=== PATIENT | male | born 1970 | race Caucasian/White ===

== ENCOUNTER 2018-02-28 09:47 | Outpatient (CLI) | payer BC, SELFPAY ==
[2018-02-28 11:35] LABS: ALT 43 U/L (12-78); AST 18 U/L (15-37); Alkaline Phosphatase 76 U/L (46-116); Anion Gap 9.8 mmol/L (3-11); BUN 15 mg/dL (7-18); Bilirubin, Total 0.6 mg/dL (0.2-1.0); CO2 25.2 mmol/L (21.0-32.0); CREATININE 1.22 mg/dL (0.70-1.30); Calcium 8.7 mg/dL (8.5-10.1); Chloride 105 mmol/L (98-107); Ferritin 484 ng/mL (8-388); Glucose 92 mg/dL (70-100); Potassium 4.5 mmol/L (3.5-5.1); Sodium 140 mmol/L (136-145); Total Protein 7.6 g/dL (6.4-8.2)
== END 2018-02-28 09:48 ==
PROVIDERS: PCP Emergency Medicine; Visit Provider Nurse Practitioner
DX: I10 Essential (primary) hypertension (principal); G25.81 Restless legs syndrome
CPT/HCPCS: 36415; 80053; 82728; 84443

== ENCOUNTER 2019-03-25 07:00 | Outpatient (CLI) | payer BC, SELFPAY ==
[2019-03-25 11:28] LABS: HCT 42.8 % (40.0-50.0); HGB 15.2 g/dL (13.5-17.5); Mean Corp. HGB Concentration 35.5 g/dL (32.0-36.0); Mean Corpuscular Hemoglobin 33.7 pg (27.0-33.0); Mean Corpuscular Volume 94.9 fL (80-95); Mean Platelet Volume 10.5 fL (8.0-11.0); Platelet Count 205 x1000/uL (130-400); RBC 4.51 m/cumm (4.50-6.00); RBC Distribution Width 12.2 % (11.8-14.1)
[2019-03-25 12:45] LABS: ALT 66 U/L (16-63); AST 22 U/L (15-37); Alkaline Phosphatase 89 U/L (46-116); Anion Gap 12.6 mmol/L (3-11); BUN 25 mg/dL (7-18); Bilirubin, Total 0.7 mg/dL (0.2-1.0); C-Reactive Protein 0.79 mg/dL (0.0-0.3); CO2 25.4 mmol/L (21.0-32.0); CREATININE 1.13 mg/dL (0.70-1.30); Calcium 7.9 mg/dL (8.5-10.1); Chloride 104 mmol/L (98-107); Glucose 94 mg/dL (70-100); Potassium 4.4 mmol/L (3.5-5.1); Sodium 142 mmol/L (136-145); TSH 1.93 uIU/mL (0.36-3.74); Total Protein 7.5 g/dL (6.4-8.2)
[2019-03-25 13:09] LABS: GGT 71 U/L (15-85)
== END 2019-03-25 07:20 ==
PROVIDERS: PCP Emergency Medicine; Visit Provider Emergency Medicine
DX: R53.83 Other fatigue (principal); E03.9 Hypothyroidism, unspecified
CPT/HCPCS: 36415; 80053; 85027; 82977; 84443; 86140

== ENCOUNTER → 2022-01-10 01:35 | Outpatient (CLI) | payer BC, SELFPAY ==
--- NOTE | 2022-01-10 07:15 | DI.RAD_ITS ---
Exam(s) XR CHEST 2V PA LATERAL EXAM: XR CHEST 2V PA LATERAL CLINICAL HISTORY: chronic cough since april,r05.3 TECHNIQUE: 2D digital imaging was performed of the chest. Two images were obtained. PA and lateral views were obtained. COMPARISON: No exams were available for comparison FINDINGS: MEDIASTINUM: Normal. HEART: Normal. PULMONARY VASCULATURE: Normal. LUNGS: Clear. PLEURAL SPACE: No pleural effusion or pneumothorax. BONE:Within normal limits for the patient's age. OTHER FINDINGS:Normal. IMPRESSION: No acute pulmonary findings. DATA REPOSITORY: RADIATION DOSE DELIVERED:
== END ==
PROVIDERS: PCP Nurse Practitioner Family; Visit Provider Nurse Practitioner Family
DX: R05.3 Chronic cough (principal)
CPT/HCPCS: 71046

== ENCOUNTER 2022-02-22 02:43 | Outpatient (CLI) | payer BC, SELFPAY ==
[2022-02-22 16:58] LABS: CREATININE 1.1 mg/dL (0.70-1.30)
== END 2022-02-22 02:44 | disposition home or self-care (01) ==
LOC: LBO 02:43
PROVIDERS: PCP Nurse Practitioner Family; Visit Provider Nurse Practitioner Family
DX: I10 Essential (primary) hypertension (principal)
CPT/HCPCS: 36415; 82565; 84132

== ENCOUNTER 2022-09-06 03:02 | Outpatient (CLI) | payer BC, SELFPAY ==
[2022-09-06 14:44] LABS: Uric Acid 6.7 mg/dL (3.5-7.2)
== END 2022-09-06 03:03 | disposition home or self-care (01) ==
LOC: LBO 03:02
PROVIDERS: PCP Nurse Practitioner Family; Visit Provider Nurse Practitioner Family
DX: M79.671 Pain in right foot (principal)
CPT/HCPCS: 36415; 84550

== ENCOUNTER 2023-01-31 14:33 | Outpatient (CLI) | payer BC, SELFPAY ==
--- NOTE | 2023-01-31 | DI.RAD_ITS ---
Exam(s) XR FOOT LT COMPLETE EXAM: XR FOOT LT COMPLETE CLINICAL HISTORY: 1st toe pain, M79.675. TECHNIQUE: 2D digital imaging was performed. Three views. COMPARISON: CR XR FOOT RT COMPLETE from 01/31/2023 FINDINGS: BONES: No acute fracture is present. No bony destructive lesion is seen. Small plantar calcaneal sp ur. JOINTS: No dislocation present. Minimal degenerative changes. SOFT TISSUE: Normal. IMPRESSION: Small heel spur. No fracture. Minimal degenerative changes. DATA REPOSITORY: RADIATION DOSE DELIVERED:
--- NOTE | 2023-01-31 | DI.RAD_ITS ---
Exam(s) XR FOOT RT COMPLETE EXAM: XR FOOT RT COMPLETE CLINICAL HISTORY: Rt foot pain s/p injury 5 days ago from a ladder, M79.671, [id number]. TECHNIQUE: 2D digital imaging was performed. Three views. COMPARISON: No exams were available for comparison FINDINGS: BONES: No acute fracture is present. No bony destructive lesion is seen. JOINTS: No dislocation present. Severe degenerative changes with prominent spurring at the 1st MTP j oint. No hallux valgus. No significant degenerative changes elsewhere. SOFT TISSUE: Normal. 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 DATA REPOSITORY: RADIATION DOSE DELIVERED:
== END 2023-01-31 14:53 ==
LOC: DI 14:33
PROVIDERS: PCP Nurse Practitioner Family; Visit Provider Podiatrist
DX: M19.071 Primary osteoarthritis, right ankle and foot (principal); M77.32 Calcaneal spur, left foot
CPT/HCPCS: 73630

== ENCOUNTER 2023-01-31 14:36 | Outpatient (CLI) | payer BC, SELFPAY ==
[2023-01-31 14:56] LABS: Uric Acid 7.6 mg/dL (3.5-7.2)
== END 2023-01-31 14:37 | disposition home or self-care (01) ==
LOC: LBO 14:39
PROVIDERS: PCP Nurse Practitioner Family; Visit Provider Podiatrist
DX: E79.0 Hyperuricemia without signs of inflammatory arthritis and tophaceous disease (principal); M10.9 Gout, unspecified; M79.672 Pain in left foot
CPT/HCPCS: 36415; 84550

== ENCOUNTER 2023-11-30 01:06 | Outpatient (CLI) | payer BC, SELFPAY ==
[2023-11-30 14:45] LABS: Hemoglobin A1C 5.3 % (<5.7)
[2023-11-30 15:03] LABS: ALT 60 U/L (16-63); AST 28 U/L (15-37); Albumin 4.2 g/dL (3.4-5.0); Alkaline Phosphatase 87 U/L (46-116); Anion Gap 10.9 mmol/L (3-11); BUN 11 mg/dL (7-18); CO2 27.1 mmol/L (21.0-32.0); CREATININE 1.1 mg/dL (0.70-1.30); Calcium 9.6 mg/dL (8.5-10.1); Calculated LDL 98 mg/dL (<100); Chloride 103 mmol/L (98-107); Cholesterol 199 mg/dL (<200); Estimated GFR 79.77 (mL/min/1.73m2); Glucose 113 mg/dL (74-106); HDL Cholesterol 79 mg/dL (40-60); Potassium 4.1 mmol/L (3.5-5.1); Sodium 141 mmol/L (136-145); TSH (W/Ref FT4) 1.81 uIU/mL (0.36-3.74); Total Protein 8.2 g/dL (6.4-8.2); Triglyceride 112 mg/dL (<150)
[2023-12-01 09:08] LABS: HIV-1/2 Ag & Ab Screen Negative (Negative)
[2023-12-03 10:00] LABS: HBs Antibody, Quant <3.1 mIU/mL (See Note); Hep B Surface Ab Negative (See Note); Hepatitis B Core Antibody Negative (Negative); Hepatitis B Surface Antigen Negative (Negative)
[2023-12-03 10:15] LABS: Hepatitis C Ab w Rflx HCV PCR Negative (Negative)
[2023-12-03 10:21] LABS: PSA, Screening 0.5 ng/mL (<=3.5)
== END 2023-11-30 01:07 | disposition home or self-care (01) ==
LOC: LBO 01:06
PROVIDERS: PCP Nurse Practitioner Family; Visit Provider Nurse Practitioner Family
DX: Z00.00 Encounter for general adult medical examination without abnormal findings (principal); Z11.59 Encounter for screening for other viral diseases; Z12.5 Encounter for screening for malignant neoplasm of prostate
CPT/HCPCS: 36415; 80053; 80061; 84153; 86704; 86706; 86803; 87340; 87389; 83036; 84443

== ENCOUNTER 2025-05-12 00:44 | Outpatient (CLI) | payer BC, SELFPAY ==
[2025-05-12 11:18] LABS: Anion Gap 11.3 mmol/L (3-11); BUN 18 mg/dL (7-18); CO2 25.7 mmol/L (21.0-32.0); Calcium 8.8 mg/dL (8.5-10.1); Chloride 102 mmol/L (98-107); Glucose 97 mg/dL (74-106); Potassium 3.9 mmol/L (3.5-5.1); Sodium 139 mmol/L (136-145); Vitamin B12 476 pg/mL (193-986)
[2025-05-12 18:39] LABS: PSA, Screening 0.4 ng/mL (<=3.5)
== END 2025-05-12 00:45 | disposition home or self-care (01) ==
LOC: LBO 00:44
PROVIDERS: PCP Nurse Practitioner Family; Visit Provider Nurse Practitioner Family
DX: Z12.5 Encounter for screening for malignant neoplasm of prostate (principal); Z00.00 Encounter for general adult medical examination without abnormal findings; K21.9 Gastro-esophageal reflux disease without esophagitis
CPT/HCPCS: 36415; 80048; 84153; 82607